=== PATIENT | female | born 1990 | race Caucasian/White ===

== ENCOUNTER 2016-11-17 20:02 | Emergency (ER) | payer OTHER ==
[~2016-11-17] VITALS: Ht 162.6 cm; Wt 61.1 kg
[~2016-11-17 20:02] MED LIST: ENDOCET 5-3251 EACH PO; FLEXERIL5 MG PO; IMODIUM MS REL1 EACH PO; Implanon; MOTRIN600 MG PO; MOTRIN800 MG PO; NAPROSYN500 MG PO; NAPROXEN500 MG PO; NORCO 5/3251 TABLET PO; PERCOCET 5/31 TABLET PO; ZOFRAN ODT4 MG PO; ZOFRAN4 MG PO; Zoloft PO
[2016-11-17 20:50] LABS: HEMATOCRIT 35.6 % (36.0-46.0); MCH 28.7 PG (29.0-34.0); MCHC 34.6 G/DL (30.0-36.0); MCV 83.2 FL (83-99); PLATELET COUNT 265 K/uL (156-360); RBC DIS.WIDTH-CV 13.3 % (11.8-14.6); RBC DIS.WIDTH-SD 39.6 % (39-53); RED BLOOD COUNT 4.28 M/uL (3.80-5.20); WHITE BLOOD COUNT 9.5 K/uL (4.1-10.2)
[2016-11-17 20:56] LABS: ADD MIUA? YES; BILIRUBIN NEGATIVE; BLOOD NEGATIVE; COLOR YELLOW ((YELLOW)); GLUCOSE (STRIP) NEGATIVE; KETONES NEGATIVE; LEUKOCYTES TRACE; NITRITE NEGATIVE; PROTEIN (STRIP) NEGATIVE; SPECIFIC GRAVITY 1.018 (1.000-1.030); UROBILINOGEN 0.2 MG/DL (0.2-1.0)
[2016-11-17 21:00] LABS: CHLORIDE 105 mEq/L (99-109); POTASSIUM 3.4 mEq/L (3.7-5.4); SODIUM 138 mEq/L (136-147)
[2016-11-17 21:02] LABS: GLUCOSE 122 mg/dL (70-99)
[2016-11-17 21:03] LABS: ANION GAP 11 MEQ/L (2-14)
[2016-11-17 21:04] LABS: TOTAL BILIRUBIN 0.3 mg/dL (0.0-1.0)
[2016-11-17 21:06] LABS: ALKALINE PHOSPHATASE 42 IU/L (3-129); GFR ESTIMATE (CALCULATED) > 59 mL/min/
[2016-11-17 21:07] LABS: UREA NITROGEN (BUN) 10 mg/dL (9-23)
[2016-11-17 21:09] LABS: LIPASE 26 U/L (1.0-51.0)
[2016-11-17 21:26] LABS: BACTERIA RARE; CASTS NONE SEEN /LPF; CRYSTALS NONE SEEN; EPITHELIAL CELLS 1+; MUCUS TRACE; RED BLOOD CELLS NONE SEEN /HPF (0-5); UCUL ADDED? NO; WHITE BLOOD CELLS RARE /HPF (0-5)
[2016-11-17 21:37] LABS: QUANTITATIVE HCG 36617.5 MIU/ML
[2016-11-17] MEDS ORDERED: PRENATAL TABLE1 EAC3 PO (22:34)
[2016-11-18 00:02] VITALS: BP 102/70
== END 2016-11-18 00:03 | disposition home or self-care (01) ==
LOC: EME 20:02
DX: O26.91 Pregnancy related conditions, unspecified, first trimester (principal); R10.30 Lower abdominal pain, unspecified; Z3A.01 Less than 8 weeks gestation of pregnancy; Z87.891 Personal history of nicotine dependence
CPT/HCPCS: 76801; 80053; 81003; 83690; 84702; 85027; 99281; 99284

== ENCOUNTER 2016-11-23 13:31 | Outpatient (CLI) | payer OTHER ==
[~2016-11-23 13:31] MED LIST changes: +PRENATAL TABLE1 EAC3 PO
[2016-11-23 14:06] VITALS: BP 103/66
[2016-11-23 14:31] LABS: BILIRUBIN NEGATIVE; BLOOD NEGATIVE; COLOR YELLOW ((YELLOW)); GLUCOSE (STRIP) NEGATIVE; KETONES NEGATIVE; LEUKOCYTES NEGATIVE; NITRITE NEGATIVE; PH, URINE 6.5 (5-8); PROTEIN (STRIP) NEGATIVE; SPECIFIC GRAVITY 1.001 (1.000-1.030); UROBILINOGEN 0.2 MG/DL (0.2-1.0)
[2016-11-23 14:38] LABS: EOSINOPHIL (%) 0.3 % (0-5); HEMATOCRIT 34.3 % (36.0-46.0); IMMATURE GRANULOCYTE (%) 0.3 % (0.0-0.7); LYMPHOCYTE COUNT 1.6 K/uL (1.0-2.8); MCH 28.2 PG (29.0-34.0); MCHC 33.5 G/DL (30.0-36.0); MCV 84.1 FL (83-99); MEAN PLAT.VOLUME 11.6 uM^3 (9.5-12.4); MONOCYTE (%) 6.5 % (3-12); MONOCYTE COUNT 0.4 K/uL (0-0.8); NEUTROPHIL (%) 68.4 % (45-76); NEUTROPHIL COUNT 4.4 K/uL (1.8-6.4); PLATELET COUNT 239 K/uL (156-360); RBC DIS.WIDTH-CV 13.3 % (11.8-14.6); RBC DIS.WIDTH-SD 40.3 % (39-53); RED BLOOD COUNT 4.08 M/uL (3.80-5.20)
[2016-11-23 14:39] LABS: WHITE BLOOD COUNT 6.4 K/uL (4.1-10.2)
[2016-11-23 14:46] LABS: ADD MIUA? NO; UCUL ADDED? NO
[2016-11-23 14:54] LABS: ALKALINE PHOSPHATASE 37 IU/L (3-129); ANION GAP 7 MEQ/L (2-14); CHLORIDE 103 MEQ/L (99-109); GFR ESTIMATE (CALCULATED) > 59 mL/min/; GLUCOSE 78 mg/dL (70-99); POTASSIUM 3.8 MEQ/L (3.7-5.4); SAMPLE HEMOLYSIS CHECK 0; SAMPLE ICTERIC CHECK 0; SAMPLE LIPEMIA CHECK 0; SODIUM 137 MEQ/L (136-147); TOTAL BILIRUBIN 0.4 MG/DL (0.0-1.0); UREA NITROGEN (BUN) 9 mg/dL (9-23)
[2016-11-23 17:09] VITALS: BP 95/55
[2016-11-26] MEDS ORDERED: PROMETHAZINE12.5 M1 PO (19:22)
[2016-11-26] MEDS ORDERED: REGLAN10 MG PO (19:22)
== END 2016-11-23 19:38 | disposition home or self-care (01) ==
LOC: LDRP-OP 13:31 → 2WEST 13:32
PROVIDERS: Advanced Practice Midwife
DX: O21.0 Mild hyperemesis gravidarum (principal); Z3A.01 Less than 8 weeks gestation of pregnancy
CPT/HCPCS: 59025; 80053; 81003; 85025; G0378; J2405; J2765; J7120

== ENCOUNTER 2016-11-25 10:39 | Emergency (ER) | payer OTHER ==
[~2016-11-25] VITALS: Ht 162.6 cm; Wt 60.7 kg
[2016-11-25 11:38] LABS: HEMATOCRIT 35.3 % (36.0-46.0); MCH 28.4 PG (29.0-34.0); MCHC 33.7 G/DL (30.0-36.0); MCV 84.2 FL (83-99); MEAN PLAT.VOLUME 11.5 uM^3 (9.5-12.4); PLATELET COUNT 239 K/uL (156-360); RBC DIS.WIDTH-CV 13.2 % (11.8-14.6); RBC DIS.WIDTH-SD 39.8 % (39-53); RED BLOOD COUNT 4.19 M/uL (3.80-5.20); WHITE BLOOD COUNT 7.4 K/uL (4.1-10.2)
[2016-11-25 11:44] LABS: ADD MIUA? YES; BILIRUBIN NEGATIVE; BLOOD NEGATIVE; COLOR YELLOW ((YELLOW)); GLUCOSE (STRIP) NEGATIVE; KETONES NEGATIVE; LEUKOCYTES NEGATIVE; NITRITE NEGATIVE; PROTEIN (STRIP) TRACE; SPECIFIC GRAVITY 1.018 (1.000-1.030); UROBILINOGEN 0.2 MG/DL (0.2-1.0)
[2016-11-25 11:52] LABS: CHLORIDE 106 mEq/L (99-109); POTASSIUM 3.7 mEq/L (3.7-5.4); SODIUM 136 mEq/L (136-147)
[2016-11-25 11:54] LABS: GLUCOSE 80 mg/dL (70-99)
[2016-11-25 11:55] LABS: ANION GAP 10 MEQ/L (2-14)
[2016-11-25 11:56] LABS: TOTAL BILIRUBIN 0.5 mg/dL (0.0-1.0)
[2016-11-25 11:57] LABS: ALKALINE PHOSPHATASE 40 IU/L (3-129)
[2016-11-25 11:58] LABS: GFR ESTIMATE (CALCULATED) > 59 mL/min/
[2016-11-25 11:59] LABS: UREA NITROGEN (BUN) 8 mg/dL (9-23)
[2016-11-25 12:01] LABS: LIPASE 10 U/L (1.0-51.0)
[2016-11-25 12:09] LABS: RED BLOOD CELLS NONE SEEN /HPF (0-5)
[2016-11-25 12:10] LABS: BACTERIA RARE; CASTS NONE SEEN /LPF; CRYSTALS NONE SEEN; EPITHELIAL CELLS 1+; MUCUS NONE SEEN; WHITE BLOOD CELLS NONE SEEN /HPF (0-5)
[2016-11-25] MEDS ORDERED: PHENERGAN25 MG PR (12:54)
[2016-11-25 14:25] VITALS: BP 105/60
[2016-11-26] MEDS ORDERED: PROMETHAZINE12.5 M1 PO (19:22)
[2016-11-26] MEDS ORDERED: REGLAN10 MG PO (19:22)
== END 2016-11-25 14:26 | disposition home or self-care (01) ==
LOC: EME 10:39
PROVIDERS: Nurse Practitioner Family
DX: O21.0 Mild hyperemesis gravidarum (principal); Z3A.01 Less than 8 weeks gestation of pregnancy
CPT/HCPCS: 80053; 81003; 83690; 84702; 85027; 99281; 99284; J2405; J7030

== ENCOUNTER 2016-11-27 13:49 | Outpatient (CLI) | payer OTHER ==
[~2016-11-27] VITALS: Ht 162.6 cm; Wt 61.3 kg
[~2016-11-27 13:49] MED LIST changes: +PHENERGAN25 MG PR; +PROMETHAZINE12.5 M1 PO; +REGLAN10 MG PO
[2016-11-27 15:22] LABS: HEMATOCRIT 34.6 % (36.0-46.0); MCH 28.2 PG (29.0-34.0); MCHC 33.5 G/DL (30.0-36.0); MEAN PLAT.VOLUME 11.3 uM^3 (9.5-12.4); PLATELET COUNT 219 K/uL (156-360); RBC DIS.WIDTH-CV 13.2 % (11.8-14.6); RBC DIS.WIDTH-SD 39.5 % (39-53); RED BLOOD COUNT 4.12 M/uL (3.80-5.20); WHITE BLOOD COUNT 6.7 K/uL (4.1-10.2)
[2016-11-27 15:29] LABS: CHLORIDE 110 mEq/L (99-109); POTASSIUM 3.8 mEq/L (3.7-5.4); SODIUM 140 mEq/L (136-147)
[2016-11-27 15:31] LABS: GLUCOSE 77 mg/dL (70-99)
[2016-11-27 15:32] LABS: ANION GAP 7 MEQ/L (2-14)
[2016-11-27 15:35] LABS: GFR ESTIMATE (CALCULATED) > 59 mL/min/
[2016-11-27 15:36] LABS: UREA NITROGEN (BUN) 5 mg/dL (9-23)
[2016-11-27 15:51] LABS: BILIRUBIN NEGATIVE; BLOOD NEGATIVE; COLOR YELLOW ((YELLOW)); GLUCOSE (STRIP) NEGATIVE; KETONES NEGATIVE; LEUKOCYTES NEGATIVE; NITRITE NEGATIVE; PH, URINE 7.5 (5-8); PROTEIN (STRIP) NEGATIVE; SPECIFIC GRAVITY 1.009 (1.000-1.030); UROBILINOGEN 0.2 MG/DL (0.2-1.0)
[2016-11-27 15:52] LABS: ADD MIUA? NO; UCUL ADDED? NO
[2016-11-27 18:14] VITALS: BP 99/55
[2016-11-27 19:21] VITALS: BP 106/52
[2016-11-27] MEDS ORDERED: COMPAZINE5 MG PO (20:30)
== END 2016-11-27 21:00 | disposition home or self-care (01) ==
LOC: LDRP-OP 13:49 → EME 13:49 → EDSTATUS 16:20 → 2WEST 16:22
PROVIDERS: Nurse Practitioner Family
DX: O21.0 Mild hyperemesis gravidarum (principal); O99.89 Other specified diseases and conditions complicating pregnancy, childbirth and the puerperium; Z3A.01 Less than 8 weeks gestation of pregnancy
CPT/HCPCS: 80048; 81003; 85027; 99281; 99284; G0378; J0780; J2405; J7030

== ENCOUNTER 2016-12-06 23:25 | Emergency (ER) | payer OTHER ==
[~2016-12-06] VITALS: Ht 162.6 cm; Wt 59.1 kg
[~2016-12-06 23:25] MED LIST changes: +COMPAZINE5 MG PO
[2016-12-06 23:55] LABS: ADD MIUA? YES; BILIRUBIN NEGATIVE; BLOOD NEGATIVE; COLOR YELLOW ((YELLOW)); GLUCOSE (STRIP) NEGATIVE; KETONES NEGATIVE; LEUKOCYTES NEGATIVE; NITRITE NEGATIVE; PROTEIN (STRIP) 30; SPECIFIC GRAVITY 1.029 (1.000-1.030)
[2016-12-07 00:01] LABS: BACTERIA RARE /HPF; EPITHELIAL CELLS 4+ /HPF; MUCUS TRACE /LPF; RED BLOOD CELLS 0-5 /HPF (0-5); UCUL ADDED? NO; WHITE BLOOD CELLS 0-5 /HPF (0-5)
[2016-12-07 00:20] LABS: HEMATOCRIT 35.9 % (36.0-46.0); MCH 28.4 PG (29.0-34.0); MCV 83.7 FL (83-99); MEAN PLAT.VOLUME 11.5 uM^3 (9.5-12.4); PLATELET COUNT 250 K/uL (156-360); RBC DIS.WIDTH-CV 13.2 % (11.8-14.6); RBC DIS.WIDTH-SD 39.5 % (39-53); RED BLOOD COUNT 4.29 M/uL (3.80-5.20); WHITE BLOOD COUNT 9.3 K/uL (4.1-10.2)
[2016-12-07 00:31] LABS: CHLORIDE 105 mEq/L (99-109); POTASSIUM 3.7 mEq/L (3.7-5.4); SODIUM 137 mEq/L (136-147)
[2016-12-07 00:33] LABS: GLUCOSE 73 mg/dL (70-99)
[2016-12-07 00:34] LABS: ANION GAP 7 MEQ/L (2-14)
[2016-12-07 00:35] LABS: TOTAL BILIRUBIN 0.4 mg/dL (0.0-1.0)
[2016-12-07 00:36] LABS: ALKALINE PHOSPHATASE 37 IU/L (3-129)
[2016-12-07 00:37] LABS: GFR ESTIMATE (CALCULATED) > 59 mL/min/
[2016-12-07 00:38] LABS: UREA NITROGEN (BUN) 10 mg/dL (9-23)
[2016-12-07 00:40] LABS: LIPASE 8 U/L (1.0-51.0)
[2016-12-07 01:28] LABS: QUANTITATIVE HCG > 225000.0 MIU/ML
[2016-12-07 02:41] VITALS: BP 107/72
== END 2016-12-07 02:43 | disposition home or self-care (01) ==
LOC: EME 23:25
DX: O21.0 Mild hyperemesis gravidarum (principal); Z3A.08 8 weeks gestation of pregnancy
CPT/HCPCS: 80053; 81003; 83690; 84702; 85027; 99281; 99284; J2405; J7030

== ENCOUNTER 2017-01-30 13:44 | Emergency (ER) | payer OTHER ==
[~2017-01-30] VITALS: Ht 162.6 cm; Wt 63.7 kg
[2017-01-30 14:19] LABS: ADD MIUA? YES; BILIRUBIN NEGATIVE; BLOOD NEGATIVE; COLOR STRAW ((YELLOW)); GLUCOSE (STRIP) NEGATIVE; KETONES NEGATIVE; LEUKOCYTES NEGATIVE; NITRITE NEGATIVE; PROTEIN (STRIP) NEGATIVE; SPECIFIC GRAVITY 1.006 (1.000-1.030); UROBILINOGEN 0.2 MG/DL (0.2-1.0)
[2017-01-30 14:25] LABS: BACTERIA 2+ /HPF; EPITHELIAL CELLS 2+ /HPF; MUCUS TRACE /LPF; RED BLOOD CELLS 0-5 /HPF (0-5); WHITE BLOOD CELLS 0-5 /HPF (0-5)
[2017-01-30 14:33] LABS: HEMATOCRIT 32.9 % (36.0-46.0); MCH 28.8 PG (29.0-34.0); MCHC 33.4 G/DL (30.0-36.0); MCV 86.1 FL (83-99); MEAN PLAT.VOLUME 11.2 uM^3 (9.5-12.4); PLATELET COUNT 242 K/uL (156-360); RBC DIS.WIDTH-CV 13.4 % (11.8-14.6); RED BLOOD COUNT 3.82 M/uL (3.80-5.20); WHITE BLOOD COUNT 8.2 K/uL (4.1-10.2)
[2017-01-30 14:42] LABS: CHLORIDE 105 mEq/L (99-109); POTASSIUM 4.3 mEq/L (3.7-5.4); SODIUM 136 mEq/L (136-147)
[2017-01-30 14:44] LABS: GLUCOSE 98 mg/dL (70-99)
[2017-01-30 14:46] LABS: ANION GAP 9 MEQ/L (2-14)
[2017-01-30 14:48] LABS: GFR ESTIMATE (CALCULATED) > 59 mL/min/
[2017-01-30 14:49] LABS: UREA NITROGEN (BUN) 8 mg/dL (9-23)
[2017-01-30] MEDS ORDERED: ANTIVERT25 MG PO (17:35)
[2017-01-30] MEDS ORDERED: CEFDINIR300 MG PO (17:35)
[2017-01-30] MEDS ORDERED: FLONASE16 G1 BOTH NARES (17:35)
[2017-01-30 18:41] VITALS: BP 112/78
== END 2017-01-30 18:44 | disposition home or self-care (01) ==
LOC: EME 13:44
PROVIDERS: Physician Assistant
DX: O99.89 Other specified diseases and conditions complicating pregnancy, childbirth and the puerperium (principal); J01.90 Acute sinusitis, unspecified; H65.90 Unspecified nonsuppurative otitis media, unspecified ear; R20.2 Paresthesia of skin; Z3A.17 17 weeks gestation of pregnancy; Z87.891 Personal history of nicotine dependence
CPT/HCPCS: 70450; 80048; 81003; 84443; 85027; 99281; 99284; J7030

== ENCOUNTER 2017-03-30 20:00 | Outpatient (CLI) | payer OTHER ==
[~2017-03-30 20:00] MED LIST changes: +ANTIVERT25 MG PO; +CEFDINIR300 MG PO; +FLONASE16 G1 BOTH NARES
[2017-03-30 20:20] VITALS: BP 120/71
[2017-03-30 20:50] LABS: ADD MIUA? NO; BILIRUBIN NEGATIVE; BLOOD NEGATIVE; COLOR YELLOW ((YELLOW)); GLUCOSE (STRIP) NEGATIVE; KETONES NEGATIVE; LEUKOCYTES NEGATIVE; NITRITE NEGATIVE; PROTEIN (STRIP) NEGATIVE; SPECIFIC GRAVITY 1.008 (1.000-1.030); UCUL ADDED? NO; UROBILINOGEN 0.2 MG/DL (0.2-1.0)
[2017-03-30 21:03] LABS: EOSINOPHIL (%) 0.8 % (0-5); EOSINOPHIL COUNT 0.1 K/uL (0-0.3); HEMATOCRIT 28.2 % (36.0-46.0); IMMATURE GRANULOCYTE (%) 0.6 % (0.0-0.7); IMMATURE GRANULOCYTE COUNT 0.1 K/uL; INSTRUMENT ABS NEUTROPHIL CT 5.8 K/uL; LYMPHOCYTE COUNT 1.5 K/uL (1.0-2.8); MCH 28.3 PG (29.0-34.0); MCHC 32.6 G/DL (30.0-36.0); MCV 86.8 FL (83-99); MEAN PLAT.VOLUME 12.4 uM^3 (9.5-12.4); MONOCYTE (%) 6.3 % (3-12); MONOCYTE COUNT 0.5 K/uL (0-0.8); NEUTROPHIL (%) 73.1 % (45-76); NEUTROPHIL COUNT 5.8 K/uL (1.8-6.4); PLATELET COUNT 196 K/uL (156-360); RBC DIS.WIDTH-CV 12.7 % (11.8-14.6); RBC DIS.WIDTH-SD 40.3 % (39-53); RED BLOOD COUNT 3.25 M/uL (3.80-5.20); WHITE BLOOD COUNT 7.9 K/uL (4.1-10.2)
[2017-03-30 21:11] LABS: CHLORIDE 107 mEq/L (99-109); POTASSIUM 3.3 mEq/L (3.7-5.4); SODIUM 137 mEq/L (136-147)
[2017-03-30 21:13] LABS: GLUCOSE 98 mg/dL (70-99)
[2017-03-30 21:14] LABS: ANION GAP 8 MEQ/L (2-14)
[2017-03-30 21:15] LABS: TOTAL BILIRUBIN 0.2 mg/dL (0.0-1.0)
[2017-03-30 21:16] LABS: ALKALINE PHOSPHATASE 43 IU/L (3-129)
[2017-03-30 21:16] LABS: AMPHETAMINE NEGATIVE (500 ng/mL); BARBITURATES NEGATIVE (200 ng/mL); BENZODIAZEPINES NEGATIVE (150 ng/mL); COCAINE NEGATIVE (150 ng/mL); INTERNAL CONTROLS VALID? YES; METHADONE NEGATIVE (200 ng/mL); METHAMPHETAMINE NEGATIVE (500 ng/mL); OPIATES (MORPHINE) NEGATIVE (100 ng/mL); OXYCODONE NEGATIVE (100 ng/mL); PHENCYCLIDINE NEGATIVE (25 ng/mL); PROPOXYPHENE NEGATIVE (300 ng/mL); THC CANNABINOIDS NEGATIVE (50 ng/mL); TRICYCLIC ANTIDEPRESSANTS NEGATIVE (300 ng/mL)
[2017-03-30 21:17] LABS: GFR ESTIMATE (CALCULATED) > 59 mL/min/
[2017-03-30 21:18] LABS: UREA NITROGEN (BUN) 5 mg/dL (9-23)
== END 2017-03-30 22:04 | disposition home or self-care (01) ==
LOC: LDRP-OP 20:00 → 2WEST 20:01 → LDRP-OP 08-15 19:09
PROVIDERS: Advanced Practice Midwife
DX: O26.892 Other specified pregnancy related conditions, second trimester (principal); R10.9 Unspecified abdominal pain; Z3A.25 25 weeks gestation of pregnancy
CPT/HCPCS: 59025; 80053; 81003; 82731; 85025; 87653; G0378; J7120

== ENCOUNTER 2017-04-29 17:51 | Outpatient (CLI) | payer OTHER ==
[2017-04-29 18:08] VITALS: BP 109/67
[2017-04-29 18:52] LABS: ADD MIUA? NO; BILIRUBIN NEGATIVE; BLOOD NEGATIVE; COLOR STRAW ((YELLOW)); GLUCOSE (STRIP) NEGATIVE; KETONES NEGATIVE; LEUKOCYTES NEGATIVE; NITRITE NEGATIVE; PROTEIN (STRIP) NEGATIVE; SPECIFIC GRAVITY 1.003 (1.000-1.030); UCUL ADDED? NO; UROBILINOGEN 0.2 MG/DL (0.2-1.0)
[2017-04-29 22:07] LABS: CANDIDA DNA PROBE NEGATIVE; GARDNERELLA DNA PROBE NEGATIVE; INTERNAL CONTROL VALID? YES
[2017-05-01 12:18] LABS: CHLAMYDIA TRACHOMATIS NEGATIVE; NEISSERIA GONORRHOEAE NEGATIVE
== END 2017-04-29 19:15 | disposition home health service (06) ==
LOC: LDRP-OP 17:51 → 2WEST 17:53 → LDRP-OP 08-06 00:14
PROVIDERS: Advanced Practice Midwife; Obstetrics & Gynecology
DX: O26.893 Other specified pregnancy related conditions, third trimester (principal); Z3A.30 30 weeks gestation of pregnancy
CPT/HCPCS: 59025; 81003; 87086; 87480; 87491; 87510; 87591; 87660; G0378

== ENCOUNTER 2017-06-08 17:21 | Outpatient (CLI) | payer OTHER ==
[~2017-06-08] VITALS: Ht 162.6 cm; Wt 70.3 kg
[2017-06-08 17:36] VITALS: BP 130/65
[2017-06-08 18:41] VITALS: BP 117/72
[2017-06-08 18:50] VITALS: BP 112/60
[2017-06-08 19:01] LABS: ADD MIUA? NO; BILIRUBIN NEGATIVE; BLOOD NEGATIVE; COLOR YELLOW ((YELLOW)); GLUCOSE (STRIP) NEGATIVE; KETONES 20; LEUKOCYTES NEGATIVE; NITRITE NEGATIVE; PROTEIN (STRIP) NEGATIVE; SPECIFIC GRAVITY 1.009 (1.000-1.030); UCUL ADDED? NO; UROBILINOGEN 0.2 MG/DL (0.2-1.0)
== END 2017-06-08 20:08 | disposition home or self-care (01) ==
LOC: LDRP-OP 17:21 → 2WEST 17:22 → LDRP-OP 08-06 20:02
PROVIDERS: Advanced Practice Midwife
DX: O47.03 False labor before 37 completed weeks of gestation, third trimester (principal); Z3A.35 35 weeks gestation of pregnancy
CPT/HCPCS: 59025; 81003; G0378; J7120

== ENCOUNTER 2018-06-04 16:28 | Emergency (ER) | payer OTHER ==
[~2018-06-04] VITALS: Ht 162.6 cm; Wt 64.5 kg
[2018-06-04 17:40] LABS: HEMATOCRIT 33.6 % (36.0-46.0); HEMOGLOBIN 11.4 G/DL (11.9-15.5); MCH 28.5 PG (29.0-34.0); MCHC 33.9 G/DL (30.0-36.0); PLATELET COUNT 242 K/uL (156-360); RBC DIS.WIDTH-CV 13.3 % (11.8-14.6); WHITE BLOOD COUNT 6.6 K/uL (4.1-10.2)
[2018-06-04 17:57] LABS: ALBUMIN 3.8 g/dL (3.2-4.8); CHLORIDE 108 mEq/L (99-109); POTASSIUM 3.8 mEq/L (3.7-5.4); SODIUM 137 mEq/L (136-147)
[2018-06-04 18:00] LABS: GLUCOSE 80 mg/dL (70-99); TOTAL PROTEIN 6.6 g/dL (6.4-8.3)
[2018-06-04 18:02] LABS: TOTAL BILIRUBIN 0.4 mg/dL (0.0-1.0)
[2018-06-04 18:04] LABS: ALKALINE PHOSPHATASE 38 IU/L (3-129); CREATININE 0.7 mg/dL (0.6-1.3); GFR ESTIMATE (CALCULATED) > 59 mL/min/
[2018-06-04 18:05] LABS: AST (GOT) 12 IU/L (2-34)
[2018-06-04 18:06] LABS: UREA NITROGEN (BUN) 6 mg/dL (9-23)
[2018-06-04 18:07] LABS: ACETAMINOPHEN (TYLENOL) < 10 mcg/mL (10-30); ALT (GPT) 10 IU/L (3-49); SALICYLATE < 5.0 MG/DL (15-30)
[2018-06-04 18:15] LABS: APPEARANCE CLEAR ((CLEAR)); BILIRUBIN NEGATIVE; BLOOD NEGATIVE; COLOR YELLOW ((YELLOW)); GLUCOSE (STRIP) NEGATIVE; KETONES 5; LEUKOCYTES NEGATIVE; NITRITE NEGATIVE; PROTEIN (STRIP) NEGATIVE; SPECIFIC GRAVITY 1.027 (1.000-1.030); UCUL ADDED? NO; UROBILINOGEN 0.2 MG/DL (0.2-1.0)
[2018-06-04 18:25] LABS: PTT 25.2 SEC (25-37)
[2018-06-04 18:44] LABS: QUANTITATIVE HCG 37643.9 MIU/ML
[2018-06-04 21:01] VITALS: BP 127/74
== END 2018-06-04 21:02 | disposition home or self-care (01) ==
LOC: EME 16:28
PROVIDERS: Physician Assistant Medical
DX: O20.0 Threatened abortion (principal); R51 Headache; O21.9 Vomiting of pregnancy, unspecified; N93.0 Postcoital and contact bleeding; O23.42 Unspecified infection of urinary tract in pregnancy, second trimester; O99.332 Smoking (tobacco) complicating pregnancy, second trimester; F17.200 Nicotine dependence, unspecified, uncomplicated; Z3A.14 14 weeks gestation of pregnancy
CPT/HCPCS: 76801; 80053; 81003; 84702; 85027; 85610; 85730; 86900; 86901; 99281; 99285; G0480; J1200; J2765; J7030